=== PATIENT | female | born 1940 | race Caucasian/White ===

== ENCOUNTER 2018-09-02 14:28 | Inpatient (IN) ==
[2018-09-02] MEDS ORDERED: Ziprasidone 10 MG in Water for inj. (sterile) 0.5 ML IM ONE (14:31)
[2018-09-02] MEDS ORDERED: Ziprasidone 20 MG/VIAL VIAL IM ONE (14:33)
[2018-09-02] MEDS ORDERED: Water for inj. (sterile) 10 ML ONE (14:33)
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
[2018-09-02 15:22] LABS: Basophils % 0.5 %; Eosinophils # 0.2 K/mcL (0.0-0.6); Eosinophils % 2.4 %; Hematocrit 38.9 % (35.3-44.9); Hemoglobin 12.1 g/dL (11.5-15.4); Immature Granulocytes % 0.4 % (0-4); Lymphocytes # 2.7 K/mcL (0.6-4.6); Lymphocytes % 35.8 %; Mean Corpuscular HGB Conc 31.1 g/dL (31.6-35.5); Mean Corpuscular Hemoglobin 29.1 pg (28.0-33.3); Mean Corpuscular Volume 93.5 fL (83.0-100.0); Mean Platelet Volume 11.6 fL (9.4-12.4); Monocytes # 0.8 K/mcL (0.0-1.3); Monocytes % 10.3 %; Neutrophils # 3.8 K/mcL (1.6-8.9); Platelet Count 176 K/mcL (140-400); Red Blood Count 4.16 M/mcL (3.82-4.97); Segmented Neutrophils % 50.6 %; White Blood Count 7.4 K/mcL (4.3-11.1)
[2018-09-02 15:26] LABS: Bilirubin,Urine Negative (Negative); Blood,Urine Negative (Negative); Clarity,Urine Cloudy (Clear); Color,Urine Yellow (Yellow); Glucose,Urine (UA) Normal (Normal); Ketones,Urine Negative (Negative); Leukocyte Esterase,Urine Large (Negative); Nitrite,Urine Positive (Negative); Protein,Urine 30 mg/dL (Neg-Trace); Specific Gravity,Urine 1.018 (1.010-1.025); Urobilinogen,Urine Normal (Normal)
[2018-09-02 15:28] LABS: Bacteria,Urine Many per hpf (None-Few); Hyaline Casts,Urine None Seen per lpf (None-Few); RBC,Urine 0-3 per hpf (0-3); Squamous Epithelial Cell,Urine Moderate per lpf (None-Few); WBC,Urine TNTC per hpf (0-3)
[2018-09-02 15:40] LABS: Amphetamine Screen,Urine Negative ng/mL (Cutoff=1000); Barbiturate Screen,Urine Negative ng/mL (Cutoff=200); Benzodiazepines Screen,Urine Negative ng/mL (Cutoff=200); Cannabinoid Screen,Urine Negative ng/mL (Cutoff = 50); Cocaine Screen,Urine Negative ng/mL (Cutoff= 300); Opiate Screen,Urine Negative ng/mL (Cutoff=300); Phencyclidine Screen,Urine Negative ng/mL (Cutoff=25)
--- NOTE | 2018-09-02 15:40 | Event Note ---
Date of Encounter: 09/02/18
[2018-09-02 15:41] LABS: Acetaminophen < 10 mcg/mL (10-20); BUN/Creatinine Ratio 17 (6-26); Blood Urea Nitrogen 18 mg/dL (8-23); Carbon Dioxide 28 mEq/L (23-29); Chloride 106 mEq/L (98-107); Ethanol < 10 mg/dL (Less than 10); Glucose 97 mg/dL (70-105); Osmolality,Calculated 294 (280-300); Potassium 4.9 mEq/L (3.5-5.1); Salicylate < 2.5 mg/dL (15.0-30.0); Sodium 141 mEq/L (136-145); eGFR For African Americans 59 (> 60); eGFR For Non-African Americans 49 (> 60)
[2018-09-02] MEDS ORDERED: CefTRIAXone 1,000 MG VIAL IM ONE (15:46)
[2018-09-02] MEDS ORDERED: cefTRIAXone 1,000 MG in Water for inj. (sterile) 10 ML IVP STA (15:52)
[2018-09-02] MEDS ORDERED: 0.9 % Sodium Chloride 1,000 ML IVC ONE (15:55)
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
--- NOTE | 2018-09-02 16:41 | Internal Med History&Physical ---
Date of Encounter: 09/02/18 Time of Encounter: 16:45 Internal Medicine - H&P: HPI Chief complaint: worsened agitation from baseline, combativeness Admitted From: Long-term Nursing Facility Plans for Post Hospital Care: Transfer Shelter Facility History of present illness: Ms. Kaplan is a 78 year old female with pmhx ed stage dementia AAOx) at baseline with behavioral disturbance, sundowning, agitation and combativeness at baseline, incontinence of bowel and bladder at baseline and poor oral intake, following with psychiatry for medication changes routinely, lives at SNF, hx of MDD w psychotic features, anxiety, recurrent UTIs. She presented from SNF where she was more combative than baseline, biting staff. She is awake, smiling and coopaerative but oriented to zero at baseline. Her daughter Yoselin is present and is her POA. Her granddaughter whom works as ARCHITECTURAL MANAGER here and the pt elederly are also present. All history obtained from family as pt cannot converse in a meaningful way at baseline and cannot accurately report any symptoms or history. Family has noted worsened agitation, which has occurred with utis inpast. She has been holding her lower abd as if in pain. She is incontinent of urine at baseline. They deny any verbalization from her of dysuria, no known hematuria or change in freq. They deny other s/s of infection including recent cough, wheezing, congestion, diarrhea, rashes or wounds. They worry that she may be in pain with her ADLs as she grimaces when being assited with them. She has hx of bl knee replacements. No known swelling redness or joint. Family has d/w Dr Tristan chong who is agreeable to seeing if Ortho can assist in easing any pain to help with behaviors. Her daughter whom is POA is able to provide confirmation of code status- DNR CC. We discussed use of antipsychotics and black box warning which she is well versed in. She agrees with any treatment necessary to help keep her mother and staff safe. She cautioned nights are particularly bad for her. OK to straight cath for urine FAmily hx reviewed and non contributory Med list provided by facility. RN in ED has confirmed all scheduled meds, prn meds remain pending confirmation. Last dose changes by psych were about one week ago per family. Agreeable to treating possible uti and ortho eval, then psych consult if no improvement this admit She has recently (June) been hospitalized by [facility] for med adjustments. ED course included geodon 10 mg IM with good effect, rocephin + 1L NS, blood cx sent Past Med Surg Social Fam HX - Past Medical History Medical history: dementia, osteoporosis, other (recurrent UTIs) Additional medical history: end stage Alzheimer's Psychiatric history: anxiety, depression (Major Depressive D/O w psychotic features) - Past Surgical History Surgical History: knee replacement, orthopedic, other, LUDIVINA/BSO Additional surgical history: Disk repair in lower back, neck fusion, bi-lateral knee surgery, left shoulder surgery - Social History Smoking Status: Former smoker Smokeless Tobacco Status: No Alcohol use: none Drug use: none Current living situation: ECF - Family History Mother Living Status: - Additional Family History Additional family history: reviewed and non contributory Internal Medicine - H&P: Meds Acetaminophen [Extra Strength Non-Aspirin] 500 mg PO DAILY 09/02/18 [History] Buspirone HCl 10 mg PO BID 09/02/18 [History] Divalproex (12 HR) [Depakote (12 HR)] 250 mg PO DAILY 09/02/18 [History] Divalproex Sodium [Depakote Sprinkle] 125 mg PO HS 09/02/18 [History] Donepezil HCl [Donepezil HCl Odt] 10 mg PO HS 09/02/18 [History] Mirtazapine [Remeron] 15 mg PO DAILY 09/02/18 [History] Prochlorperazine Maleate [Compazine] 10 mg PO Q8HR PRN 09/02/18 [History] Quetiapine Fumarate [Seroquel] 25 mg PO DAILY 09/02/18 [History] Sertraline [Zoloft] 150 mg PO DAILY 09/02/18 [History] Tobramycin Opth OINT [Tobrex] 3.5 gm BOTH EYES BID 09/02/18 [History] Allergy/AdvReac Type Severity Reaction Status Date / Time bee venom protein (honey bee) Allergy See Verified 09/02/18 15:21 Comments morphine Allergy Hives Verified 09/02/18 15:21 mushroom Allergy See Verified 09/02/18 15:21 Comments Penicillins [PCN] Allergy See Verified 09/02/18 15:21 Comments sulfasalazine Allergy See Verified 09/02/18 15:21 Comments phenazopyridine AdvReac Nausea Verified 09/02/18 15:21 [From Pyridium] All Systems PM: unable to obtain further ROS other than noted in HPI due to end stage dementia, no meaningful conversations at baseline and inability to report symptoms - Constitutional Vitals: Temp Pulse Resp BP Pulse Ox 97.9 F 85 18 00 95 09/02/18 14:43 09/02/18 14:43 09/02/18 14:43 09/02/18 14:43 09/02/18 14:43 Exam: General: awake, alert, appears stated age, nad, calm HEENT:EOM intact, pupils equal, round, moist mucus membranes Neck: supple, trachea midline Cardiovascular:regular rate and rhythm, normal S1 & S2, no rubs, murmurs or gallops. No JVD. no pitting lower extremity edema Lungs:Normal breath sounds, no wheezes, or crackles. Normal respiratory effort on room air Abdomen:Soft, non-tender, non-distended, no rigidity, + bowel sounds Extremities: BL knees No deformity, no edema or tenderness, no joint swelling Neurological: AAOx0, CN grossly intact,moves all ext spontaneously without deficit noted, speech clear Skin:Normal color, no rash, no pallor, no jaundice Psych: affect is calm and cheerful, smiling, currently cooperative Internal Med - H&P Results - Labs CBC & Chem 7: 09/02/18 15:04 09/02/18 15:04 Labs: Short CBC 09/02/18 Range/Units 15:04 WBC 7.4 (4.3-11.1) K/mcL Hgb 12.1 (11.5-15.4) g/dL Hct 38.9 (35.3-44.9) % Plt Count 176 (140-400) K/mcL Neutrophils # 3.8 (1.6-8.9) K/mcL BMP 09/02/18 15:04 Sodium 141 Potassium 4.9 Chloride 106 Carbon Dioxide 28 BUN 18 Creatinine 1.08 Glucose 97 Calcium 9.0 Urine 09/02/18 Range/Units 15:07 Urine Color Yellow (Yellow) Urine Clarity Cloudy A (Clear) Urine pH 8.0 (5.0-8.0) pH Units Ur Specific [place] 1.018 (1.010-1.025) Urine Protein 30 H (Neg-Trace) mg/dL Urine Glucose (UA) Normal (Normal) mg/dL - Impressions ITS Impressions Head CT 09/02/18 14:31 IMPRESSION: 1. No acute intracranial abnormality. 2. Diffuse cerebral atrophy with chronic small vessel ischemic disease. D/ / Krish Ramos MD / Krish Ramos MD Interpreting Provider: Krish Ramos MD - Assessment and Plan (1) Encephalopathy due to infection Current Visit: Yes Status: Acute (2) Combative behavior Current Visit: Yes Status: Chronic (3) UTI (urinary tract infection) Current Visit: Yes Status: Suspected Qualifiers: Urinary tract infection type: site unspecified Hematuria presence: without hematuria Qualified Code(s): N39.0 - Urinary tract infection, site not specified (4) Alzheimer's dementia with behavioral disturbance Current Visit: No Status: Chronic Qualifiers: Alzheimer's disease onset: late-onset Qualified Code(s): G30.1 - Alzheimer's disease with late onset (5) Knee pain, bilateral Current Visit: Yes Status: Suspected Qualifiers: Chronicity: acute Qualified Code(s): M25.561 - Pain in right knee; M25.562 - Pain in left knee - Summary of Assessment and Plan Summary of Assessment and Plan: Admitted for acute encephalopathy with worsened combative behavior on top of end stage dementia due to suspected UTI and possible knee pain Encephalopathy, with increased combativeness from baseline suspected 2/2 Infection (UTI) Possibly worsened by bilateral knee pain In setting of End stage Dementia -doing well after geodon in ED -sitter, prn geodon, cont home meds -will treat UTI and have knees evaluated by her established ortho -can anticipate -check am ekg to confirm qt interval -DNR CC, limit uncomfortable interventions or those intervention that may further agitate pt End Stage Alzheimer Dementia w Behavioral disturbance Daughter Yoselin is her POA AAx0 at baseline -cont home remeron, depakote, donepizil, zoloft, seroquel -check VPA level -if no improvement with interventions above will consult psych -sitter, fall precautions Suspected UTI -old micro reviewed, hx resistance to pcn and cipro/levo in past -cont rocephin, bl cx and ucx pending Possible BL Knee pain Hx BL knee replacement -Dr Inman consulted to evfarhat, possible knee injections for pain -fall precautions vte ppx - scds - Time Spent With Patient Total time spent is greater than 50% in coordination of care (as documented) at patient's floor/unit and/or counseling patient: Greater than 35 minutes
[2018-09-02] MEDS ORDERED: Ondansetron 4 MG/2 ML VIAL IVP PRN (17:09)
[2018-09-02] MEDS ORDERED: Naloxone 0.4 MG/ML INJ IVP PRN (17:09)
[2018-09-02] MEDS ORDERED: Acetaminophen 325 MG TABLET PO PRN (17:09)
[2018-09-02 18:07] LABS: Valproate 34 mcg/mL (50-100)
[2018-09-02] MEDS: Ziprasidone 10 MG in Water for inj. (sterile) 0.5 ML IM PRN (18:59)
[2018-09-02] MEDS: TOBRAMYCIN OP SCH (21:54)
[2018-09-02] MEDS: Divalproex Sodium 125 MG CAPSULE PO SCH (21:54)
--- NOTE | 2018-09-03 08:03 | Internal Med Progress Note ---
Hospitalist Progress Note - Encounter Date of Encounter: 09/03/18 Time of Encounter: 09:30 - Subjective Interval History: awake, at bedside. she is eating breakfast. She does not appropriately answer questions, bt is calm. Sitter at bedside notes she slept most of morning. notes she is eating a fair amount of breakfast, appears comfortable and hasn't demonstrated signs of pain. - Exam Vitals: Temp Pulse Resp BP Pulse Ox 98.7 F 93 14 153/74 98 09/02/18 17:34 09/02/18 17:34 09/02/18 19:01 09/02/18 19:01 09/02/18 17:34 Exam: General: awake, alert, appears stated age, nad, calm Cardiovascular:regular rate and rhythm, normal S1 & S2, no pitting lower extremity edema Lungs:Normal breath sounds, no wheezes Normal respiratory effort on room air Abdomen:Soft, non-tender, non-distended, + bowel sounds Neurological: AAOx0, CN grossly intact,moves all ext spontaneously without deficit noted Psych: affect is calm currently cooperative - Assessment and Plan (1) Encephalopathy due to infection Current Visit: Yes Status: Acute (2) Combative behavior Current Visit: Yes Status: Chronic (3) UTI (urinary tract infection) Current Visit: Yes Status: Suspected (4) Alzheimer's dementia with behavioral disturbance Current Visit: No Status: Chronic (5) Knee pain, bilateral Current Visit: Yes Status: Suspected - Summary of Assessment and Plan Summary of Assessment and Plan: Admitted for acute encephalopathy with worsened combative behavior on top of end stage dementia due to suspected UTI and possible knee pain Encephalopathy, with increased combativeness from baseline- 2/ other cause: Infection (UTI), Possibly worsened by bilateral knee pain In setting of End stage Dementia with known behavioral disturbance -jim torres, cont home meds -will treat UTI and have knees evaluated by her established ortho -DNR CC, limit uncomfortable interventions or those intervention that may further agitate pt, unable to obtain ekg therefore order discontinued End Stage Alzheimer Dementia w Behavioral disturbance Daughter Yoselin is her POA AAx0 at baseline -cont home remeron, depakote, donepizil, zoloft, seroquel -VPA level 34, dose was just adjusted outpt by her psych one week ago -if fails to improve to baseline with treatment as above will get psych here on board for med adjustments -sitter, fall precautions Suspected UTI -old micro reviewed, hx resistance to pcn and cipro/levo in past -cont rocephin, bl cx and ucx pending Possible BL Knee pain Hx BL knee replacement -Dr Inman consulted to eval, possible knee injections for pain -fall precautions vte ppx - scds - Time Spent with Patient Total time spent is greater than 50% in coordination of care (as documented) at patient's floor/unit and/or counseling patient: Plan of Care Discussed with: family Internal Medicine: Result - Labs CBC & Chem 7: 09/02/18 15:04 09/03/18 07:46 Labs: Short CBC 09/02/18 Range/Units 15:04 WBC 7.4 (4.3-11.1) K/mcL Hgb 12.1 (11.5-15.4) g/dL Hct 38.9 (35.3-44.9) % Plt Count 176 (140-400) K/mcL Neutrophils # 3.8 (1.6-8.9) K/mcL BMP 09/02/18 15:04 Sodium 141 Potassium 4.9 Chloride 106 Carbon Dioxide 28 BUN 18 Creatinine 1.08 Glucose 97 Calcium 9.0 Urine 09/02/18 Range/Units 15:07 Urine Color Yellow (Yellow) Urine Clarity Cloudy A (Clear) Urine pH 8.0 (5.0-8.0) pH Units Ur Specific [place] 1.018 (1.010-1.025) Urine Protein 30 H (Neg-Trace) mg/dL Urine Glucose (UA) Normal (Normal) mg/dL - Impressions Impressions Head CT 09/02/18 14:31 IMPRESSION: 1. No acute intracranial abnormality. 2. Diffuse cerebral atrophy with chronic small vessel ischemic disease. D/ / Krish Ramos MD / Krish Ramos MD Interpreting Provider: Krish Ramos MD Consult Discharge Plan - Plan Referrals: NONE,PCP [Primary Care Provider] - (3) UTI (urinary tract infection) Qualifiers: Urinary tract infection type: site unspecified Hematuria presence: without hematuria Qualified Code(s): N39.0 - Urinary tract infection, site not specified (4) Alzheimer's dementia with behavioral disturbance Qualifiers: Alzheimer's disease onset: late-onset Qualified Code(s): G30.1 - Alzheimer's disease with late onset (5) Knee pain, bilateral Qualifiers: Chronicity: acute Qualified Code(s): M25.561 - Pain in right knee; M25.562 - Pain in left knee
[2018-09-03 09:19] LABS: Alanine Aminotransferase 8 Units/L (7-52); Albumin 3.8 g/dL (3.5-5.7); Albumin/Globulin Ratio 1.5 (1.1-2.2); Alkaline Phosphatase 70 Units/L (34-104); Aspartate Amino Transferase 13 Units/L (13-39); BUN/Creatinine Ratio 15 (6-26); Bilirubin,Total 0.3 mg/dL (0.3-1.0); Blood Urea Nitrogen 14 mg/dL (8-23); Calcium 8.9 mg/dL (8.6-10.3); Carbon Dioxide 26 mEq/L (23-29); Chloride 109 mEq/L (98-107); Globulin 2.5 g/dL (2.4-3.5); Glucose 89 mg/dL (70-105); Osmolality,Calculated 300 (280-300); Potassium 4.2 mEq/L (3.5-5.1); Sodium 145 mEq/L (136-145); Total Protein 6.3 g/dL (6.4-8.9); eGFR For African Americans > 60 (> 60); eGFR For Non-African Americans 56 (> 60)
[2018-09-03] MEDS: TOBRAMYCIN OP SCH ×2 (09:47→20:09)
[2018-09-03] MEDS: Mirtazapine 15 MG TABLET PO SCH (09:47)
[2018-09-03] MEDS: Divalproex (12 HR) 250 MG TABLET PO SCH (09:47)
[2018-09-03] MEDS: Ziprasidone 10 MG in Water for inj. (sterile) 0.5 ML IM PRN (11:18)
--- NOTE | 2018-09-03 12:13 | Orthopedic Consult Note ---
Date of Encounter: 09/03/18 Time of Encounter: 15:00 Assessment and Plan (1) History of bilateral knee replacement Current Visit: Yes Status: Chronic (2) Alzheimer's dementia with behavioral disturbance Current Visit: No Status: Chronic Qualifiers: Alzheimer's disease onset: late-onset Qualified Code(s): G30.1 - Alzheimer's disease with late onset History of Present Illness Chief complaint: h/o b/l knee pain HPI: Ms. Kaplan is a 78 year old female presents to [facility] with worsening behavioral disturbance. Family believed her knees to be contributing to her pain and worsened behavioral disturbance. She has been diagnosed with UTI at present time. She is status post bilateral knee replacements from Dr. Inman in remote past, per spouse over 15 years ago. Spouse at bedside. Sitter at bedside. Patient alert, but not oriented at all. On exam bilateral lower extremities with no gross deformity noted. There are excoriations noted to anterior knee and bilateral thighs. No disturbance or resistance noted with palpation of knees or passive rom. Patient unable to follow directed active rom. She does move her ankles independently with no perceived calf tenderness. No instability to knee motion. No effusion, scar disturbance, erythema, or gross deformity noted about either knee. At this time, patient does not appear to be in any distress related to her knees with no abnormality noted on exam, with the exception of the excoriations to bilateral thighs. Will forego any intervention including injections at this time Will reevaluate in the morning Past Med Surg Social Fam HX - Past Medical History Medical history: dementia, osteoporosis, other (recurrent UTIs) Additional medical history: end stage Alzheimer's Psychiatric history: anxiety, depression (Major Depressive D/O w psychotic features) - Past Surgical History Surgical History: knee replacement, orthopedic, other, LUDIVINA/BSO Additional surgical history: Disk repair in lower back, neck fusion, bi-lateral knee surgery, left shoulder surgery - Social History Smoking Status: Former smoker Smokeless Tobacco Status: No Alcohol use: none Drug use: none - Family History Mother Living Status: Medications and Allergies Acetaminophen [Extra Strength Non-Aspirin] 500 mg PO 0900,2100 09/02/18 [History] Buspirone HCl [Buspar] 10 mg PO 0900,1700 09/02/18 [History] Divalproex Sodium [Depakote Sprinkle] 250 mg PO 1200 09/02/18 [History] Mirtazapine [Remeron] 15 mg PO 209909/02/18 [History] Prochlorperazine Maleate [Compazine] 10 mg PO Q8HR PRN 09/02/18 [History] Quetiapine Fumarate [Seroquel] 25 mg PO 0900 09/02/18 [History] Sertraline [Zoloft] 150 mg PO 0909/02/18 [History] Divalproex Sodium [Depakote Sprinkle] 125 mg PO 209909/03/18 [History] Donepezil [Aricept] 10 mg PO 209909/03/18 [History] Hydrocortisone Valerate 1 appl TP TID PRN 09/03/18 [History] Ibuprofen [Ibu] 400 mg PO Q6H PRN 09/03/18 [History] Magnesium Hydroxide [Milk of Magnesia] 2,400 mg PO DAILY PRN 09/03/18 [History] Polyethylene Glycol 3350 [MiraLAX] 17 gm PO DAILY PRN 09/03/18 [History] Allergy/AdvReac Type Severity Reaction Status Date / Time bee venom protein (honey bee) Allergy See Verified 09/02/18 15:21 Comments morphine Allergy Hives Verified 09/02/18 15:21 mushroom Allergy See Verified 09/02/18 15:21 Comments Penicillins [PCN] Allergy See Verified 09/02/18 15:21 Comments sulfasalazine Allergy See Verified 09/02/18 15:21 Comments phenazopyridine AdvReac Nausea Verified 09/02/18 15:21 [From Pyridium] All Systems Reviewed: The remainder of the systems were reviewed and are negative Physical Exam - Constitutional Vitals: Temp Pulse Resp BP Pulse Ox 98.7 F 93 14 153/74 98 09/02/18 17:34 09/02/18 17:34 09/02/18 19:01 09/02/18 19:01 09/02/18 17:34 Results - Labs Result Diagrams: 09/02/18 15:04 09/03/18 07:46 Labs: Abnormal lab results MCHC 31.1 g/dL (31.6-35.5) L 09/02/18 15:04 Chloride 109 mEq/L (98-107) H 09/03/18 07:46 Est GFR ( Amer) 59 (> 60) L 09/02/18 15:04 Est GFR (Non-Af Amer) 56 (> 60) L 09/03/18 07:46 6.3 g/dL (6.4-8.9) L 09/03/18 07:46 Cloudy (Clear) A 09/02/18 15:07 30 mg/dL (Neg-Trace) H 09/02/18 15:07 Positive (Negative) A 09/02/18 15:07 Ur Leukocyte Esterase Large (Negative) H 09/02/18 15:07 TNTC per hpf (0-3) H 09/02/18 15:07 Ur Squamous Epith Cells Moderate per lpf (None-Few) H 09/02/18 15:07 Many per hpf (None-Few) H 09/02/18 15:07 Salicylates < 2.5 mg/dL (15.0-30.0) L 09/02/18 15:04 Acetaminophen < 10 mcg/mL (10-20) L 09/02/18 15:04 Valproic Acid 34 mcg/mL (50-100) L 09/02/18 15:04 H & H 09/02/18 Range/Units 15:04 Hgb 12.1 (11.5-15.4) g/dL Hct 38.9 (35.3-44.9) % All other labs normal. Consult Discharge Plan - Plan Referrals: NONE,PCP [Primary Care Provider] -
[2018-09-03] MEDS: cefTRIAXone 2,000 MG in 0.9 % Sodium Chloride Mini Bag 100 ML IVPB SCH (17:32)
[2018-09-03] MEDS: Divalproex Sodium 125 MG CAPSULE PO SCH (20:11)
[2018-09-04] MEDS: TOBRAMYCIN OP SCH (08:30)
[2018-09-04] MEDS: Divalproex (12 HR) 250 MG TABLET PO SCH ×2 (08:30→10:06)
[2018-09-04] MEDS: Mirtazapine 15 MG TABLET PO SCH ×2 (08:30→10:06)
--- NOTE | 2018-09-04 08:59 | Internal Med Progress Note ---
Hospitalist Progress Note - Encounter Date of Encounter: 09/04/18 Time of Encounter: 08:40 - Subjective Interval History: asleep, sitter and and RN at bedside. Was awake earlier this morning, taking intermittent naps, calm. not in distress or apparent pain per sitter. Staff preparing her breakfast for her. - Exam Vitals: Temp Pulse Resp BP Pulse Ox 98.5 F 17 16 162/79 96 09/04/18 06:16 09/04/18 06:16 09/04/18 06:16 09/04/18 06:16 09/04/18 06:16 Exam: General: appears stated age, nad, calm Cardiovascular:regular rate and rhythm, normal S1 & S2 Lungs:Normal breath sounds, no wheezes Normal respiratory effort on room air Abdomen:Soft, non-tender, non-distended Neurological: AAOx0 - Assessment and Plan (1) Encephalopathy due to infection Current Visit: Yes Status: Resolved (2) Combative behavior Current Visit: Yes Status: Chronic (3) UTI (urinary tract infection) Current Visit: Yes Status: Suspected (4) Alzheimer's dementia with behavioral disturbance Current Visit: No Status: Chronic (5) Knee pain, bilateral Current Visit: Yes Status: Suspected - Summary of Assessment and Plan Summary of Assessment and Plan: Admitted for acute encephalopathy with worsened combative behavior on top of end stage dementia due to suspected UTI and possible knee pain Encephalopathy, with increased combativeness from baseline- 2/2 other cause: Infection (UTI), Possibly worsened by bilateral knee pain In setting of End stage Dementia with known behavioral disturbance NOW BACK TO BASELINE -sitter, prn geodon, cont home meds -will treat UTI and have knees evaluated by her established ortho -DNR CC, limit uncomfortable interventions or those intervention that may further agitate pt End Stage Alzheimer Dementia w Behavioral disturbance Daughter Yoselin is her POA AAx0 at baseline -cont home remeron, depakote, donepizil, zoloft, seroquel -VPA level 34, dose was just adjusted outpt by her psych one week ago -will dispo to [facility] for further management -sitter, fall precautions Suspected UTI -old micro reviewed, hx resistance to pcn and cipro/levo in past -cont rocephin, bl cx ngtd -micro lab confirmed Ucx remains pending, had to be re run and will result likely wednesday 09/06 Possible BL Knee pain Hx BL knee replacement -Dr Inman consulted to eval, possible knee injections for pain -fall precautions vte ppx - scds dispo will be to [facility] unit once medically clear- which reuires Ucx to be resulted, not expected per lab until 09/06 Internal Medicine: Result - Labs CBC & Chem 7: 09/02/18 15:04 09/03/18 07:46 Labs: BMP 09/03/18 07:46 Sodium 145 Potassium 4.2 Chloride 109 H Carbon Dioxide 26 BUN 14 Creatinine 0.96 Glucose 89 Calcium 8.9 Liver Function 09/03/18 Range/Units 07:46 Total Bilirubin 0.3 (0.3-1.0) mg/dL AST 13 (13-39) Units/L ALT 8 (7-52) Units/L Alkaline Phosphatase 70 (34-104) Units/L Albumin 3.8 (3.5-5.7) g/dL Consult Discharge Plan - Plan Referrals: NONE,PCP [Primary Care Provider] - (3) UTI (urinary tract infection) Qualifiers: Urinary tract infection type: site unspecified Hematuria presence: without hematuria Qualified Code(s): N39.0 - Urinary tract infection, site not specified (4) Alzheimer's dementia with behavioral disturbance Qualifiers: Alzheimer's disease onset: late-onset Qualified Code(s): G30.1 - Alzheimer's disease with late onset (5) Knee pain, bilateral Qualifiers: Chronicity: acute Qualified Code(s): M25.561 - Pain in right knee; M25.562 - Pain in left knee
--- NOTE | 2018-09-04 13:24 | Electrocardiograph Report ---
[address] [address] Test Date: 2018-09-03 Pat Name: Cait Kaplan Department: 113 Room: 3B21 Gender: F Molder Setter: : 1940 Requested By: Kimberlyn Azul Order Number: [id number] Reading MD: Philip King Measurements Intervals [place] Rate: 100 P: 48 [place]: 212 QRS: -1 QRSD: 87 T: 52 QT: 344 QTc: 401 Interpretive Statements SINUS TACHYCARDIA WITH FIRST DEGREE AV BLOCK Electronically Signed On 09-04-2018 13:22:54 EDT by Philip King
[2018-09-04] MEDS: cefTRIAXone 2,000 MG in 0.9 % Sodium Chloride Mini Bag 100 ML IVPB SCH (15:46)
[2018-09-04] MEDS: Divalproex Sodium 125 MG CAPSULE PO SCH (21:56)
--- NOTE | 2018-09-05 07:19 | Orthopedics Progress Note ---
Date of Encounter: 09/04/18 Time of Encounter: 08:30 - Assessment and Plan (1) History of bilateral knee replacement Current Visit: Yes Status: Chronic (2) Alzheimer's dementia with behavioral disturbance Current Visit: No Status: Chronic Qualifiers: Alzheimer's disease onset: late-onset Qualified Code(s): G30.1 - Alzheimer's disease with late onset Subjective Principal diagnosis: h/o b/l knee replacement Interval history: Ms. Kaplan is a 78 year old female presents to [facility] with worsening behavioral disturbance. Family believed her knees to be contributing to her pain and worsened behavioral disturbance. She has been diagnosed with UTI. She is status post bilateral knee replacements from Dr. Inman in remote past, per spouse over 15 years ago. Spouse at bedside. Sitter at bedside. Patient sleeping peacefully. Patient does not arouse upon my entry. Spouse gives permission for examination. On exam bilateral lower extremities with no gross deformity noted. There are again excoriations noted to anterior knee and bilateral thighs - do not appear changed from yesterday's exam. No disturbance or resistance noted with palpation of knees or passive rom. Patient awakens during passive range of motion with no vocalization or fist making or move to stop this author from continuing examination. This notes that her sensation is likely intact to bilateral lower extremities. Patient unable to follow directed active rom. No instability to knee motion. No effusion, scar disturbance, erythema, or gross deformity noted about either knee. Again, at this time, patient does not appear to be in any distress related to her knees with no abnormality noted on exam, with the exception of the excoriations to bilateral thighs. Patient's spouse states today that patient has been walking unaided with no problem even recently however was grabbing at her k ne when staff at her previous residence were showering her. Also he notes she was able to bend her knees fully for straight catheterization on day of presentation without complaint or resistance. Will forego any intervention including injections at this time Encourage topical NSAID such as Voltaren (Diclofenac) gel versus pain relief creams such as Biofreeze or Aspercreme with lidocaine should patient begin to demonstrate concern regarding knees including actions such as clutching knees with motion, refusing to ambulate, falling or buckling of knees. Should this begin to occur, at that time steroid injections for pain/swelling relief would be indicated if conservative measures as noted above were not providing relief. S/w Dr. Monteiro Thank you for this consultation. Please reach out should any further concern regarding patient's orthopedic health arise. Objective Vital signs: Vital Signs Temp Pulse Resp BP Pulse Ox 09/04/18 17:32 98.6 F 82 18 153/79 93 09/04/18 11:39 98.5 F 87 14 143/81 92 Intake and Output 09/04/18 09/04/18 09/05/18 15:59 23:59 07:59 Intake Total 0 / 160 160 / 160 Output Total 0 / 0 Balance 0 / 160 160 / 160 0 / 0 Intake: IV Fluids 100 / 100 Rocephin 2,000 MG In 0.9 % 100 / 100 Sodium Chloride (Mini-Bag +) 100 ML @ 200 mls/hr IVPB Q24H [facility] Rx#:[id number] Oral 0 / 60 60 / 60 Output: Urine 0 / 0 Other: Meal Breakfast Dinner Percent of Meal Consumed 0% 25% - Labs CBC & BMP: 09/02/18 15:04 09/03/18 07:46 Labs: Abnormal lab results MCHC 31.1 g/dL (31.6-35.5) L 09/02/18 15:04 Chloride 109 mEq/L (98-107) H 09/03/18 07:46 Est GFR ( Amer) 59 (> 60) L 09/02/18 15:04 Est GFR (Non-Af Amer) 56 (> 60) L 09/03/18 07:46 6.3 g/dL (6.4-8.9) L 09/03/18 07:46 Cloudy (Clear) A 09/02/18 15:07 30 mg/dL (Neg-Trace) H 09/02/18 15:07 Positive (Negative) A 09/02/18 15:07 Ur Leukocyte Esterase Large (Negative) H 09/02/18 15:07 TNTC per hpf (0-3) H 09/02/18 15:07 Ur Squamous Epith Cells Moderate per lpf (None-Few) H 09/02/18 15:07 Many per hpf (None-Few) H 09/02/18 15:07 Salicylates < 2.5 mg/dL (15.0-30.0) L 09/02/18 15:04 Acetaminophen < 10 mcg/mL (10-20) L 09/02/18 15:04 Valproic Acid 34 mcg/mL (50-100) L 09/02/18 15:04 Consult Discharge Plan - Plan Referrals: NONE,PCP [Primary Care Provider] -
--- NOTE | 2018-09-05 08:40 | Internal Med Progress Note ---
Hospitalist Progress Note - Encounter Date of Encounter: 09/05/18 Time of Encounter: 10:10 - Subjective Interval History: awake in bed, no family at bedside. She is alert but doesn't answer any questions today. Turns head away and closes eyes. no further hpi or ros can be obtained due to end stage dementia. calm and comfortable appearing - Exam Vitals: Temp Pulse Resp BP Pulse Ox 98.4 F 84 16 174/77 94 09/05/18 07:57 09/05/18 07:57 09/05/18 07:57 09/05/18 07:57 09/05/18 07:57 Exam: General: appears stated age, nad Cardiovascular:regular rate and rhythm, no le edema Lungs:Normal breath sounds, no wheezes Normal respiratory effort on room air Neurological: AAOx0, CN grossly intact - Assessment and Plan (1) Encephalopathy due to infection Current Visit: Yes Status: Resolved (2) Combative behavior Current Visit: Yes Status: Chronic (3) UTI (urinary tract infection) Current Visit: Yes Status: Suspected (4) Alzheimer's dementia with behavioral disturbance Current Visit: No Status: Chronic (5) Knee pain, bilateral Current Visit: Yes Status: Ruled-out (6) HTN (hypertension) Current Visit: Yes Status: Acute - Summary of Assessment and Plan Summary of Assessment and Plan: Admitted for acute encephalopathy with worsened combative behavior on top of end stage dementia due to suspected UTI and possible knee pain She appears to be at baseline and has not demonstrated combative behavior in recent days her and is awaiting Ucx results for transfer to [facility]. Encephalopathy, with increased combativeness from baseline- 2/2 other cause: Infection (UTI) In setting of End stage Dementia with known behavioral disturbance NOW BACK TO BASELINE -sitter, prn geodon has not been required, cont home meds -will treat UTI -knees evaluated by her established ortho and cannot appreciate any abnormalities or demonstration of pain--no intervention required -DNR CC, limit uncomfortable interventions or those intervention that may further agitate pt End Stage Alzheimer Dementia w Behavioral disturbance Daughter Yoselin is her POA AAx0 at baseline -cont home remeron, depakote, donepizil, zoloft, seroquel -VPA level 34, dose was just adjusted outpt by her psych one week ago -will dispo to [facility] for further management -sitter, fall precautions Suspected UTI -old micro reviewed, hx resistance to pcn and cipro/levo in past -cont rocephin, bl cx ngtd -micro lab confirmed Ucx remains pending, had to be re run and will result likely wednesday 09/06 Possible BL Knee pain, ruled out Hx BL knee replacement -Dr Inman consulted to eval,no intervention required Consistently elevated BPs HTN -begin norvasc and monitor for effect, will require outpt follow up vte ppx - scds dispo will be to [facility] unit once medically clear- which requires Ucx to be resulted, not expected per lab until 09/06 Internal Medicine: Result - Labs CBC & Chem 7: 09/02/18 15:04 09/03/18 07:46 Consult Discharge Plan - Plan Referrals: NONE,PCP [Primary Care Provider] - (3) UTI (urinary tract infection) Qualifiers: Urinary tract infection type: site unspecified Hematuria presence: without hematuria Qualified Code(s): N39.0 - Urinary tract infection, site not specified (4) Alzheimer's dementia with behavioral disturbance Qualifiers: Alzheimer's disease onset: late-onset Qualified Code(s): G30.1 - Alzheimer's disease with late onset (5) Knee pain, bilateral Qualifiers: Chronicity: acute Qualified Code(s): M25.561 - Pain in right knee; M25.562 - Pain in left knee (6) HTN (hypertension) Qualifiers: Hypertension type: essential hypertension Qualified Code(s): I10 - Essential (primary) hypertension
[2018-09-05] MEDS: Divalproex (12 HR) 250 MG TABLET PO SCH (12:33)
[2018-09-05] MEDS: amLODIPine 5 MG TABLET PO SCH (12:33)
[2018-09-05] MEDS: Mirtazapine 15 MG TABLET PO SCH (12:34)
[2018-09-05] MEDS: cefTRIAXone 2,000 MG in 0.9 % Sodium Chloride Mini Bag 100 ML IVPB SCH (16:20)
[2018-09-05] MEDS: Divalproex Sodium 125 MG CAPSULE PO SCH (20:41)
--- NOTE | 2018-09-06 08:16 | Internal Med Progress Note ---
Hospitalist Progress Note - Encounter Date of Encounter: 09/06/18 Time of Encounter: 08:00 - Subjective Interval History: Pt asleep. and COOK [employer] at bedside. She is soundly sleeping as she was early yesterday morning. at bedside notes her to have been awake and ate meals with him both lunch and dinner last night. He denies agitation or combativeness and denies any indication she is in pain or uncomfortable. Discussed as well with RN given pt cannot provide hpi or ros with end stage dementia. RN also was with pt yesterday. notes she sleeps daily throughout morning and then is awake and interactive thorughout afternoon and evening. feels overall she is somewhat more tired than she is at home. VS have remained normal Labs obtained this morng are also unremarkable Ucx finalized results and proteus sensitive to rocephin for which she will complete course this afternoon. RN will hold her morning meds and we will see if this aides in morning somnolence today. Discussed with that her nighttime medication may be over sedating her, though it is unknown what her car dumper operator helper sleeping pattern at [facility] is. - Exam Vitals: Temp Pulse Resp BP Pulse Ox 98.0 F 66 16 144/70 96 09/06/18 07:12 09/06/18 07:12 09/06/18 07:12 09/06/18 07:12 09/06/18 07:12 Exam: General: appears stated age, nad Cardiovascular:regular rate and rhythm, no murmurs, no le edema, no jvd Lungs:Normal breath sounds, no wheezes, rhonchi or crackles Normal respiratory effort on room air abd: soft, no apparent tenderness as no guard or grimace to palpation, non distended, + bs Neurological: AAOx0, no facial droop, very somnolent - Assessment and Plan (1) Encephalopathy due to infection Current Visit: Yes Status: Resolved (2) Combative behavior Current Visit: Yes Status: Chronic (3) UTI (urinary tract infection) Current Visit: Yes Status: Suspected (4) Alzheimer's dementia with behavioral disturbance Current Visit: No Status: Chronic (5) Knee pain, bilateral Current Visit: Yes Status: Ruled-out (6) HTN (hypertension) Current Visit: Yes Status: Acute - Summary of Assessment and Plan Summary of Assessment and Plan: Admitted for acute encephalopathy with worsened combative behavior on top of end stage dementia due to suspected UTI and possible knee pain She appears to be at baseline and has not demonstrated combative behavior in recent days her and is awaiting Ucx results for transfer to [facility]. Encephalopathy, with increased combativeness from baseline- 2/2 other cause: Infection (UTI) In setting of End stage Dementia with known behavioral disturbance Resolved -sitter when not present, prn jersey has not been required since admission -cont home meds for behavioral disturbance -she is somnolent in mornings then interactive in afternoons/evenings -UTI treatment will be ocmplete tonight -knees evaluated by her established ortho and cannot appreciate any abnormalities or demonstration of pain--no intervention required -DNR CC, limit uncomfortable interventions or those intervention that may further agitate pt End Stage Alzheimer Dementia w Behavioral disturbance Daughter Yoselin is her POA AAx0 at baseline -cont home remeron, depakote, donepizil, zoloft, seroquel -VPA level 34, dose was just adjusted outpt by her psych one week ago -will d ispo to [facility] for further management -we will permit psychiatry to adjust meds as she is calm here, though admittedly appears sedated in ams with interactiveness in afternoon and evenings, but he sitate to make changes given complexity of her regimen and severity of her behavioral disturbance Proteus UTI sensistive to rocephin -will complete IV abx this evening - bl cx ngtd day 4 Possible BL Knee pain, ruled out Hx BL knee replacement -Dr Inman consulted to eval,no intervention required, fu outpt as required Consistently elevated BPs 150-160s sbp HTN -began norvasc w good effect (sbps 130-140) will require outpt follow up and further med adjustment vte ppx - scds dispo will be to [facility] psych unit tomorrow as medically stable, will complete abx course this evening - Time Spent with Patient Total time spent is greater than 50% in coordination of care (as documented) at patient's floor/unit and/or counseling patient: Internal Medicine: Result - Labs CBC & Chem 7: 09/06/18 08:47 09/06/18 08:47 Consult Discharge Plan - Plan Referrals: NONE,PCP [Primary Care Provider] - (3) UTI (urinary tract infection) Qualifiers: Urinary tract infection type: site unspecified Hematuria presence: without hematuria Qualified Code(s): N39.0 - Urinary tract infection, site not specified (4) Alzheimer's dementia with behavioral disturbance Qualifiers: Alzheimer's disease onset: late-onset Qualified Code(s): G30.1 - Alzheimer's disease with late onset (5) Knee pain, bilateral Qualifiers: Chronicity: acute Qualified Code(s): M25.561 - Pain in right knee; M25.562 - Pain in left knee (6) HTN (hypertension) Qualifiers: Hypertension type: essential hypertension Qualified Code(s): I10 - Essential (primary) hypertension
[2018-09-06] MEDS: Divalproex (12 HR) 250 MG TABLET PO SCH (08:29)
[2018-09-06] MEDS: Mirtazapine 15 MG TABLET PO SCH (08:29)
[2018-09-06] MEDS: amLODIPine 5 MG TABLET PO SCH (08:29)
[2018-09-06 09:11] LABS: Basophils # 0.1 K/mcL (0.0-0.2); Basophils % 0.6 %; Eosinophils # 0.3 K/mcL (0.0-0.6); Eosinophils % 3.4 %; Hematocrit 42.2 % (35.3-44.9); Hemoglobin 13.3 g/dL (11.5-15.4); Immature Granulocytes % 0.4 % (0-4); Lymphocytes # 2.7 K/mcL (0.6-4.6); Lymphocytes % 32.9 %; Mean Corpuscular HGB Conc 31.5 g/dL (31.6-35.5); Mean Corpuscular Hemoglobin 29.6 pg (28.0-33.3); Mean Platelet Volume 11.3 fL (9.4-12.4); Monocytes # 0.8 K/mcL (0.0-1.3); Monocytes % 9.2 %; Neutrophils # 4.4 K/mcL (1.6-8.9); Platelet Count 221 K/mcL (140-400); Red Blood Count 4.49 M/mcL (3.82-4.97); Segmented Neutrophils % 53.5 %; White Blood Count 8.2 K/mcL (4.3-11.1)
[2018-09-06 09:30] LABS: BUN/Creatinine Ratio 27 (6-26); Blood Urea Nitrogen 28 mg/dL (8-23); Calcium 9.2 mg/dL (8.6-10.3); Carbon Dioxide 26 mEq/L (23-29); Chloride 106 mEq/L (98-107); Glucose 106 mg/dL (70-105); Osmolality,Calculated 298 (280-300); Potassium 4.3 mEq/L (3.5-5.1); Sodium 141 mEq/L (136-145); eGFR For African Americans > 60 (> 60); eGFR For Non-African Americans 50 (> 60)
[2018-09-06] MEDS: cefTRIAXone 2,000 MG in 0.9 % Sodium Chloride Mini Bag 100 ML IVPB SCH (16:33)
[2018-09-06] MEDS: Divalproex Sodium 125 MG CAPSULE PO SCH (20:39)
--- NOTE | 2018-09-07 07:40 | Discharge Summary ---
- NOTES TO OUTPATIENT PROVIDER Notes to Outpatient Provider: No medication changes made. VPA level low 34 and defer to outpt psychiatry for med adjustments as no behavioral issues here. Completed abx course for UTI. Started on Norvasc 5 mg for consistently elevated BPs here. Follow up outpt for further adjsutments Orders not resulted at time of discharge: Pending orders 09/02/18 16:13 Culture,Blood [BC] Stat Date of Encounter: 09/07/18 Time of Encounter: 08:40 - Discharge Diagnosis (1) Encephalopathy due to infection Priority: Primary Status: Resolved Assessment and Plan: Encephalopathy, with increased combativeness from baseline- 04/11 other cause: Infection (UTI) In setting of End stage Dementia with known behavioral disturbance Resolved -prn jersey has not been required since admission -cont home meds for behavioral disturbance -she is somnolent in mornings then interactive in afternoons/evenings daily -UTI treatment completed prior to dc -knees evaluated by her established ortho and cannot appreciate any abnormalities or demonstration of pain--no intervention required (2) UTI (urinary tract infection) Priority: Secondary Status: Acute Assessment and Plan: Proteus UTI sensistive to rocephin -completed course 09/06 - bl cx ngtd x4d Qualifiers: Urinary tract infection type: site unspecified Hematuria presence: without hematuria Qualified Code(s): N39.0 - Urinary tract infection, site not specified (3) Alzheimer's dementia with behavioral disturbance Priority: Secondary Status: Chronic Assessment and Plan: End Stage Alzheimer Dementia w Behavioral disturbance Daughter Yoselin is her POA AAx0 at baseline -cont home remeron, depakote, donepizil, zoloft, seroquel -VPA level 34, dose was just adjusted outpt by her psych one week ago -defer to psych for further management as no behavioral issues here Qualifiers: Alzheimer's disease onset: late-onset Qualified Code(s): G30.1 - Alzheimer's disease with late onset (4) Knee pain, bilateral Priority: Secondary Status: Ruled-out Assessment and Plan: Possible BL Knee pain, ruled out Hx BL knee replacement -Dr Inman consulted to eval,no intervention required, fu outpt as required Qualifiers: Chronicity: acute Qualified Code(s): M25.561 - Pain in right knee; M25.562 - Pain in left knee (5) HTN (hypertension) Priority: Secondary Status: Acute Assessment and Plan: HTN -began norvasc w good effect (sbps 130-140) will require outpt follow up and further med adjustment Qualifiers: Hypertension type: unspecified Qualified Code(s): I10 - Essential (primary) hypertension Hospital course: Ms. Kaplan is a 78 year old female pmhx ed stage dementia AAOx) at baseline with behavioral disturbance, sundowning, agitation and combativeness at baseline, incontinence of bowel and bladder at baseline and poor oral intake, following with psychiatry for medication changes routinely, lives at SNF, hx of MDD w psychotic features, anxiety, recurrent UTIs. Admitted for increased behavioral disturbance and UTI. She was treated with rocephin and had an uncomplicated course. Her behavioral disturbances were stable on her home medications and no adjustments or psych consult were required. The full details of her course can be found in the diagnoses section of this document. She was dc back to SNF in stable condition. Discharge discussed with: patient, family, nurse, social work - Time Spent with Patient Time spent: Less than 30 minutes (25 min) - Discharge Medications Prescriptions: New amLODIPine [Norvasc] 5 mg PO DAILY tablet Continued Quetiapine Fumarate [Seroquel] 25 mg PO 0900 Prochlorperazine Maleate [Compazine] 10 mg PO Q8HR PRN PRN Reason: Nausea Mirtazapine [Remeron] 15 mg PO 2100 Divalproex Sodium [Depakote Sprinkle] 250 mg PO 1200 Sertraline [Zoloft] 150 mg PO 0900 Acetaminophen [Extra Strength Non-Aspirin] 500 mg PO 0900,2100 Buspirone HCl [Buspar] 10 mg PO 0900,1700 Divalproex Sodium [Depakote Sprinkle] 125 mg PO 2100 Donepezil [Aricept] 10 mg PO 2100 Hydrocortisone Valerate 1 appl TP TID PRN PRN Reason: Itching Ibuprofen [Ibu] 400 mg PO Q6H PRN PRN Reason: Pain Magnesium Hydroxide [Milk of Magnesia] 2,400 mg PO DAILY PRN PRN Reason: Constipation Polyethylene Glycol 3350 [MiraLAX] 17 gm PO DAILY PRN PRN Reason: Constipation Home Medications: Acetaminophen [Extra Strength Non-Aspirin] 500 mg PO 0900,2100 09/02/18 [History] Buspirone HCl [Buspar] 10 mg PO 0900,1700 09/02/18 [History] Divalproex Sodium [Depakote Sprinkle] 250 mg PO 1200 09/02/18 [History] Mirtazapine [Remeron] 15 mg PO 209909/02/18 [History] Prochlorperazine Maleate [Compazine] 10 mg PO Q8HR PRN 09/02/18 [History] Quetiapine Fumarate [Seroquel] 25 mg PO 89909/02/18 [History] Sertraline [Zoloft] 150 mg PO 89909/02/18 [History] Divalproex Sodium [Depakote Sprinkle] 125 mg PO 209909/03/18 [History] Donepezil [Aricept] 10 mg PO 209909/03/18 [History] Hydrocortisone Valerate 1 appl TP TID PRN 09/03/18 [History] Ibuprofen [Ibu] 400 mg PO Q6H PRN 09/03/18 [History] Magnesium Hydroxide [Milk of Magnesia] 2,400 mg PO DAILY PRN 09/03/18 [History] Polyethylene Glycol 3350 [MiraLAX] 17 gm PO DAILY PRN 09/03/18 [History] amLODIPine [Norvasc] 5 mg PO DAILY tablet 09/07/18 [Rx] Allergies/Adverse Reactions: Allergy/AdvReac Type Severity Reaction Status Date / Time bee venom protein (honey bee) Allergy See Verified 09/02/18 15:21 Comments morphine Allergy Hives Verified 09/02/18 15:21 mushroom Allergy See Verified 09/02/18 15:21 Comments Penicillins [PCN] Allergy See Verified 09/02/18 15:21 Comments sulfasalazine Allergy See Verified 09/02/18 15:21 Comments phenazopyridine AdvReac Nausea Verified 09/02/18 15:21 [From Pyridium] Date of admission: 09/02/18 18:11 Primary care physician: PCP NONE Consults: 09/02/18 17:11 Consult to Wall Covering Installer [CONS] Routine Reason for SW Consult: will likely place back to snf 09/02/18 17:12 Consult to Nutrition [CONS] Routine Comment: end stage dementia, poor oral intake Consulting Provider: NUTRITION Reason for Dietary Consult: PO Supplementation Consult to Orthopedic Surgery [CONS] Routine Consulting Provider: Lester Inman Reason for Consult: suspected possible knee pain as cause to behavioral worsening, eval for any possible intervention/tx recs, thank you Call Completed: Yes Discharging clinician: Kimberlyn Azul - Constitutional Vitals: Temp Pulse Resp BP Pulse Ox 98.7 F 95 16 164/88 96 09/07/18 07:22 09/07/18 07:22 09/07/18 07:22 09/07/18 07:22 09/07/18 07:22 Exam: asleep, awakes to conversation with her . Comfortable appearing, does not answer question. HPI and ROS from at bedside given her severe dementia. He denies she appears in pain, he has no concerns. Updated to completion of antibiotic treatment and normal labs and vitals. Discussed dc plan and answered all questions. Discussed with RN, no overnight issues, no prn geodon required. General: appears stated age, nad Cardiovascular:regular rate and rhythm, no murmurs, no le edema Lungs:Normal breath sounds, no wheezes, rhonchi or crackles Normal respiratory effort on room air abd: soft, no apparent tenderness as no guard or grimace to palpation, non distended, + bs Neurological: AAOx0, no facial droop, awake, spontaneous movement of all exts without deficit - Patient Status Disposition: Transfer SNF Condition: Good Overall status at discharge: patient is back to baseline - Discharge Instructions Follow Up With: NONE,PCP [Primary Care Provider] - Forms: ED Satisfaction Letter - Diet and Activity Activity: increase activity as tolerated Diet: advance to your usual diet
[2018-09-07 11:49] VITALS: BP 149/87
--- NOTE | 2018-09-07 11:52 | Physician Discharge Referral ---
ExtendedCare Referral Info Provider in Charge after Transfer: PCP - Diagnosis (1) Encephalopathy due to infection Priority: Primary Status: Resolved (2) Combative behavior Priority: Secondary Status: Chronic (3) UTI (urinary tract infection) Priority: Secondary Status: Acute (4) Alzheimer's dementia with behavioral disturbance Priority: Secondary Status: Chronic (5) Knee pain, bilateral Priority: Secondary Status: Ruled-out (6) HTN (hypertension) Priority: Secondary Status: Acute Prognosis: Fair - Transfer Medications Home Medications: Acetaminophen [Extra Strength Non-Aspirin] 500 mg PO 0900,209909/02/18 [History] Buspirone HCl [Buspar] 10 mg PO 0900,1700 09/02/18 [History] Divalproex Sodium [Depakote Sprinkle] 250 mg PO 1200 09/02/18 [History] Mirtazapine [Remeron] 15 mg PO 209909/02/18 [History] Prochlorperazine Maleate [Compazine] 10 mg PO Q8HR PRN 09/02/18 [History] Quetiapine Fumarate [Seroquel] 25 mg PO 0900 09/02/18 [History] Sertraline [Zoloft] 150 mg PO 0900 09/02/18 [History] Divalproex Sodium [Depakote Sprinkle] 125 mg PO 209909/03/18 [History] Donepezil [Aricept] 10 mg PO 209909/03/18 [History] Hydrocortisone Valerate 1 appl TP TID PRN 09/03/18 [History] Ibuprofen [Ibu] 400 mg PO Q6H PRN 09/03/18 [History] Magnesium Hydroxide [Milk of Magnesia] 2,400 mg PO DAILY PRN 09/03/18 [History] Polyethylene Glycol 3350 [MiraLAX] 17 gm PO DAILY PRN 09/03/18 [History] amLODIPine [Norvasc] 5 mg PO DAILY tablet 09/07/18 [Rx] Allergies/Adverse Reactions: Allergy/AdvReac Type Severity Reaction Status Date / Time bee venom protein (honey bee) Allergy See Verified 09/02/18 15:21 Comments morphine Allergy Hives Verified 09/02/18 15:21 mushroom Allergy See Verified 09/02/18 15:21 Comments Penicillins [PCN] Allergy See Verified 09/02/18 15:21 Comments sulfasalazine Allergy See Verified 09/02/18 15:21 Comments phenazopyridine AdvReac Nausea Verified 09/02/18 15:21 [From Pyridium] - Respiratory Orders None Smoking Cessation: Smoking cessation has been advised. For more information, call the [place] Tobacco Quit Line at 3-735-RIKS-NOW. - Ancillary Orders May use pressure relief devices daily prn - Advance Directives Code Status: DNR-Comfort Care - Rehabiliation Orders Rehab Potential: Fair Rehab Orders: ROM Exercises, Evaluation for Physical Therapy, Evaluation for Occupational Therapy - Diet Orders Regular CERTIFICATION: I certify that the transfer of the above named patient to an Extended Care Facility is necessary for the continuing treatment of the diagnosis listed. The above information is true and accurate reflection of patient's current condition. Confidential - Redisclosure prohibited without a patient's written consent.
[2018-09-07] MEDS: amLODIPine 5 MG TABLET PO SCH (13:23)
[2018-09-07] MEDS: Mirtazapine 15 MG TABLET PO SCH (13:24)
[2018-09-07] MEDS: Divalproex (12 HR) 250 MG TABLET PO SCH (13:49)
== END 2018-09-07 14:00 | DRG 71 ==
LOC: 3BNU 14:28 → EMEROOARM 14:28 → SUATTDRO 16:39 → 3BNU 17:12
PROVIDERS: ADMIT Internal Medicine; ATTEND Internal Medicine

== ENCOUNTER 2018-11-10 16:00 | Inpatient (IN) ==
[2018-11-10] MEDS ORDERED: Haloperidol Lactate 5 MG/ML VIAL IM ONE (16:17)
[2018-11-10] MEDS ORDERED: Ibuprofen 400 MG TABLET PO PRN (16:42)
[2018-11-10] MEDS ORDERED: Haloperidol Oral Conc 10 MG/5 ML UDC PO SCH (16:45)
[2018-11-10] MEDS ORDERED: Haloperidol Lactate 5 MG/ML VIAL IM PRN (16:51)
[2018-11-10] MEDS ORDERED: Haloperidol Oral Conc 10 MG/5 ML UDC PO PRN (16:52)
--- NOTE | 2018-11-10 17:11 | Pallative History & Physical ---
Date of Encounter: 11/10/18 Time of Encounter: 17:10 Assessment and Plan (1) Agitation Current visit: Yes Status: Acute Haldol 5 mg po/IM every 4 hours if needed. Hopefully, agitation will improve if this is related to UTI. (2) UTI (urinary tract infection) Current visit: No Status: Acute UA/culture. Will start IM Ceftriaxone as she is too combative for IV stick at present. Last admission in August - urine + for Proteus and sensitive to Ceftriaxone. Also obtaining CBC/C13 Qualifiers: Urinary tract infection type: site unspecified Hematuria presence: without hematuria Qualified Code(s): N39.0 - Urinary tract infection, site not specified (3) Hospice care Current visit: Yes Status: Acute (4) Altered mental status Current visit: No Status: Acute Qualifiers: Altered mental status type: delirium Qualified Code(s): R41.0 - Disorientation, unspecified (5) Alzheimer's dementia with behavioral disturbance Current visit: No Status: Chronic Check LFT's/Depakote level. Adjust meds as needed. Qualifiers: Alzheimer's disease onset: late-onset Qualified Code(s): G30.1 - Alzheimer's disease with late onset (6) Palliative care encounter Current visit: Yes Status: Acute Internal Medicine - H&P: HPI Admitted From: Long-term Nursing Facility Plans for Post Hospital Care: Hospice - Medical Facility History of present illness: Ms. Kaplan is a 78 year old female who resides at [facility] and a patient of [facility] who is admitted for general inpatient hospice stay for increased agitation and combativeness. No family is present with patient and she is agitated, so information taken from chart review. She has history of Alzheimers dementia, depression, anxiety, incontinence. She has became aggressive with staff at [facility], and is refusing bathing and some oral medications. She also had recent fall. SHe was admitted for symptom management of her agitation and r/o UTI. Last admission, she did have agitation and was positive for Proteus Mirabilis, treated with Ceftriaxone. Behaviors improved after treatment. Past Med Surg Social Fam HX - Past Medical History Medical history: dementia, hypertension, osteoporosis, other Additional medical history: end stage Alzheimer's Psychiatric history: anxiety, depression - Past Surgical History Surgical History: knee replacement, orthopedic, other, LUDIVINA/BSO Additional surgical history: Disk repair in lower back, neck fusion, bi-lateral knee surgery, left shoulder surgery - Social History Smoking Status: Former smoker Smokeless Tobacco Status: No Alcohol use: none Drug use: none - Family History Mother Living Status: Internal Medicine - H&P: Meds Acetaminophen [Extra Strength Non-Aspirin] 500 mg PO 0900,2100 09/02/18 [History] Buspirone HCl [Buspar] 10 mg PO 0900,1700 09/02/18 [History] Divalproex Sodium [Depakote Sprinkle] 250 mg PO 1200 09/02/18 [History] Mirtazapine [Remeron] 15 mg PO 209909/02/18 [History] Prochlorperazine Maleate [Compazine] 10 mg PO Q8HR PRN 09/02/18 [History] Quetiapine Fumarate [Seroquel] 25 mg PO 0900 09/02/18 [History] Sertraline [Zoloft] 150 mg PO 0900 09/02/18 [History] Divalproex Sodium [Depakote Sprinkle] 125 mg PO 209909/03/18 [History] Donepezil [Aricept] 10 mg PO 209909/03/18 [History] Hydrocortisone Valerate 1 appl TP TID PRN 09/03/18 [History] Ibuprofen [Ibu] 400 mg PO Q6H PRN 09/03/18 [History] Magnesium Hydroxide [Milk of Magnesia] 2,400 mg PO DAILY PRN 09/03/18 [History] Polyethylene Glycol 3350 [MiraLAX] 17 gm PO DAILY PRN 09/03/18 [History] amLODIPine [Norvasc] 5 mg PO DAILY tablet 09/07/18 [Rx] Allergy/AdvReac Type Severity Reaction Status Date / Time bee venom protein (honey bee) Allergy See Verified 09/02/18 15:21 Comments morphine Allergy Hives Verified 09/02/18 15:21 mushroom Allergy See Verified 09/02/18 15:21 Comments Penicillins [PCN] Allergy See Verified 09/02/18 15:21 Comments sulfasalazine Allergy See Verified 09/02/18 15:21 Comments phenazopyridine AdvReac Nausea Verified 09/02/18 15:21 [From Pyridium] ROS unobtainable: due to mental status Palliative Care-Exam - Constitutional General appearance: Present: no acute distress - Head Head Exam: Present: normal inspection, normocephalic - Eye Eye exam: Present: normal appearance - Respiratory Respiratory exam: Present: decreased breath sounds, CTAB - Cardiovascular Cardiovascular exam: Present: +S1, +S2 - GI/Abdominal Exam GI/Abdominal exam: Present: normal bowel sounds, soft - Extremities Exam Extremities exam: Present: normal capillary refill, normal inspection - Neurological Exam Neurological exam: Present: altered Additional comments: Agitated with assessment. Will not follow commands. - Skin Skin exam: Present: dry, pallor, warm Palliative Quality Palliative Quality: Screen for Code Status: Yes, Screen for Goals of Care: Yes, Screen for Pain: NA (uncooperative), If Pain Regimen Started, Initiate Bowel Regimen: NA, Screen for Nausea/Vomitting: NA Code Status: 11/10/18 16:47 Resuscitation Status: Active [RES] Routine Comment: Resuscitation Status: DNR-Comfort Care
[2018-11-10] MEDS ORDERED: CefTRIAXone 1,000 MG VIAL IM ONE ×2 (17:36→20:00)
[2018-11-10 18:17] LABS: Bilirubin,Urine Small (Negative); Blood,Urine Moderate (Negative); Clarity,Urine Cloudy (Clear); Color,Urine Yellow (Yellow); Glucose,Urine (UA) Normal (Normal); Ketones,Urine Trace mg/dL (Negative); Leukocyte Esterase,Urine Large (Negative); Nitrite,Urine Negative (Negative); PH,Urine 5.5 pH Units (5.0-8.0); Protein,Urine Trace mg/dL (Neg-Trace); Specific Gravity,Urine 1.028 (1.010-1.025); Urobilinogen,Urine Normal (Normal)
[2018-11-10 18:18] LABS: Basophils # 0.1 K/mcL (0.0-0.2); Basophils % 0.8 %; Eosinophils # 0.2 K/mcL (0.0-0.6); Eosinophils % 1.9 %; Hematocrit 42.1 % (35.3-44.9); Immature Granulocytes % 0.4 % (0-4); Lymphocytes # 2.6 K/mcL (0.6-4.6); Mean Corpuscular HGB Conc 30.9 g/dL (31.6-35.5); Mean Corpuscular Hemoglobin 29.7 pg (28.0-33.3); Mean Corpuscular Volume 96.3 fL (83.0-100.0); Mean Platelet Volume 11.8 fL (9.4-12.4); Monocytes # 0.7 K/mcL (0.0-1.3); Monocytes % 9.5 %; Neutrophils # 4.2 K/mcL (1.6-8.9); Platelet Count 112 K/mcL (140-400); Red Blood Count 4.37 M/mcL (3.82-4.97); Red Cell Distribution Width 13.2 % (11.5-14.5); Segmented Neutrophils % 54.4 %; White Blood Count 7.8 K/mcL (4.3-11.1)
[2018-11-10 18:19] LABS: Bacteria,Urine Few per hpf (None-Few); RBC,Urine 0-3 per hpf (0-3); Squamous Epithelial Cell,Urine Moderate per lpf (None-Few); WBC,Urine TNTC per hpf (0-3)
[2018-11-10 18:34] LABS: Albumin 4.2 g/dL (3.5-5.7); Albumin/Globulin Ratio 1.5 (1.1-2.2); Bilirubin,Indirect 0.3 mg/dL (0.0-1.2); Bilirubin,Total 0.3 mg/dL (0.3-1.0); Calcium 9.5 mg/dL (8.6-10.3); Globulin 2.8 g/dL (2.4-3.5); Potassium 3.9 mEq/L (3.5-5.1)
[2018-11-10 18:40] LABS: Hyaline Casts,Urine Few per lpf (None-Few)
[2018-11-10 18:41] LABS: Mucus,Urine Few (Few); Yeast,Urine Few per hpf (None Seen)
[2018-11-10] MEDS: Divalproex Sodium 125 MG CAPSULE PO SCH (20:17)
[2018-11-10] MEDS: Gabapentin 100 MG CAPSULE PO SCH (20:17)
[2018-11-10] MEDS: risperiDONE 1 MG TABLET PO SCH (20:17)
[2018-11-10] MEDS: Mirtazapine 15 MG TABLET PO SCH (20:17)
--- NOTE | 2018-11-11 09:46 | Palliative Progress Note ---
Date of Encounter: 11/11/18 Time of Encounter: 09:45 - Assessment and plan (1) Agitation Current Visit: Yes Status: Acute Assessment and plan: Continue Haloperidol PRN. Has not required since she had initial dose upon admission yesterday. MOnitor (2) UTI (urinary tract infection) Current Visit: No Status: Acute Assessment and plan: Continue IM Ceftriaxone. Hopefully when culture returns, can transition to po Atb Qualifiers: Urinary tract infection type: site unspecified Hematuria presence: without hematuria Qualified Code(s): N39.0 - Urinary tract infection, site not specified (3) Hospice care Current Visit: Yes Status: Acute Assessment and plan: Continue GIP care for likely UTI/agitation. She is improved today. Once urine culture back and atb therapy reviewed, she could transition back to [facility]. Bishnu at bedside. Discussed plan of care. (4) Altered mental status Current Visit: No Status: Acute Qualifiers: Altered mental status type: delirium Qualified Code(s): R41.0 - Disorientation, unspecified (5) Alzheimer's dementia with behavioral disturbance Current Visit: No Status: Chronic Qualifiers: Alzheimer's disease onset: late-onset Qualified Code(s): G30.1 - A lzheimer's disease with late onset (6) Palliative care encounter Current Visit: Yes Status: Acute - Time Spent With Patient Total time spent is greater than 50% in coordination of care (as documented) at patient's floor/unit and/or counseling patient: - Subjective Interval history: Patient sleeping on arrival - Bishnu at bedside. She awakens easily - smiled when she saw her , but would not answer questions for me. Staff reported she slept all night, but was still very agitated with getting a bath. Vitals stable. Labs from yesterday reviewed. UA + WBC, Leukocyte esterase, culture remains pending. - Constitutional Vitals: Abnormal lab results MCHC 30.9 g/dL (31.6-35.5) L 11/10/18 17:18 Plt Count 112 K/mcL (140-400) L 11/10/18 17:18 Chloride 108 mEq/L (98-107) H 11/10/18 17:18 Est GFR ( Amer) 55 (> 60) L 11/10/18 17:18 Est GFR (Non-Af Amer) 45 (> 60) L 11/10/18 17:18 Urine Clarity Cloudy (Clear) A 11/10/18 17:35 Ur Specific [place] 1.028 (1.010-1.025) H 11/10/18 17:35 Urine Ketones Trace mg/dL (Negative) H 11/10/18 17:35 Urine Blood Moderate (Negative) H 11/10/18 17:35 Urine Bilirubin Small (Negative) H 11/10/18 17:35 Ur Leukocyte Esterase Large (Negative) H 11/10/18 17:35 Urine Microscopic WBC TNTC per hpf (0-3) H 11/10/18 17:35 Ur Squamous Epith Cells Moderate per lpf (None-Few) H 11/10/18 17:35 Urine Yeast Few per hpf (None Seen) H 11/10/18 17:35 Ur Culture Indicated? YES (NO) A 11/10/18 17:35 General appearance: Present: disheveled, no acute distress - Respiratory Respiratory exam: Present: CTAB - Cardiovascular Cardiovascular exam: Present: +S1, +S2 - GI/Abdominal GI/Abdominal exam: Present: normal bowel sounds, soft - Additional comments: Incontinent - attends in place - Extremities Exam Additional comments: Bruising to RLE noted from previous fall - Neurological Exam Neurological exam: Present: alert Additional comments: Will not verbalize or follow commands for me this am, but pleasant and smiling. Moves all extremities - Skin Additional comments: Multiple old bruises to left side of face, legs from previous fall at [facility]. Palliative Quality Palliative Quality: Screen for Code Status: Yes, Screen for Goals of Care: Yes, Screen for Pain: NA (uncooperative), If Pain Regimen Started, Initiate Bowel Regimen: NA, Screen for Nausea/Vomitting: NA Code Status: 11/10/18 16:47 Resuscitation Status: Active [RES] Routine Comment: Resuscitation Status: DNR-Comfort Care - Labs CBC & Chem 7: 11/10/18 17:18 11/10/18 17:18 Labs: Laboratory Results - last 24 hr 11/10/18 11/10/18 11/10/18 17:18 17:18 17:35 WBC 7.8 RBC 4.37 Hgb 13.0 Hct 42.1 MCV 96.3 MCH 29.7 MCHC 30.9 L RDW 13.2 Plt Count 112 L MPV 11.8 Immature Gran % 0.4 Seg Neutrophils % 54.4 Lymphocytes % 33.0 Monocytes % 9.5 Eosinophils % 1.9 Basophils % 0.8 Neutrophils # 4.2 Lymphocytes # 2.6 Monocytes # 0.7 Eosinophils # 0.2 Basophils # 0.1 Sodium 143 Potassium 3.9 Chloride 108 H Carbon Dioxide 24 BUN 21 Creatinine 1.15 Est GFR ( Amer) 55 L Est GFR (Non-Af Amer) 45 L BUN/Creatinine Ratio 18 Glucose 105 Calculated Osmolality 299 Calcium 9.5 Total Bilirubin 0.3 Direct Bilirubin 0.0 Indirect Bilirubin 0.3 AST 15 ALT 9 Alkaline Phosphatase 72 Serum Total Protein 7.0 Albumin 4.2 Globulin 2.8 Albumin/Globulin Ratio 1.5 Urine Color Yellow Urine Clarity Cloudy A Urine pH 5.5 Ur Specific [place] 1.028 H Urine Protein Trace Urine Glucose (UA) Normal Urine Ketones Trace H Urine Blood Moderate H Urine Nitrite Negative Urine Bilirubin Small H Urine Urobilinogen Normal Ur Leukocyte Esterase Large H Urine Microscopic RBC 0-3 Urine Microscopic WBC TNTC H Ur Squamous Epith Cells Moderate H Urine Bacteria Few Hyaline Casts Few Urine Mucus Few Urine Yeast Few H Ur Culture Indicated? YES A Consult Discharge Plan - Plan Referrals: NONE,PCP [Primary Care Provider] -
[2018-11-11] MEDS: Gabapentin 100 MG CAPSULE PO SCH ×3 (10:56→21:19)
[2018-11-11] MEDS: amLODIPine 5 MG TABLET PO SCH (10:56)
[2018-11-11] MEDS: risperiDONE 0.25 MG TABLET PO SCH ×3 (10:56→21:19)
[2018-11-11] MEDS: Divalproex Sodium 125 MG CAPSULE PO SCH ×3 (11:00→21:19)
[2018-11-11] MEDS: risperiDONE 1 MG TABLET PO SCH (11:00)
[2018-11-11] MEDS: CefTRIAXone 1,000 MG VIAL IM SCH (13:43)
[2018-11-11] MEDS ORDERED: CefTRIAXone 1,000 MG VIAL IM SCH (17:00)
[2018-11-11] MEDS: Mirtazapine 15 MG TABLET PO SCH (21:19)
[2018-11-12] MEDS: risperiDONE 0.25 MG TABLET PO SCH ×3 (08:54→20:25)
[2018-11-12] MEDS: amLODIPine 5 MG TABLET PO SCH (08:54)
[2018-11-12] MEDS: Gabapentin 100 MG CAPSULE PO SCH ×3 (08:55→20:25)
[2018-11-12] MEDS: CefTRIAXone 1,000 MG VIAL IM SCH (08:56)
--- NOTE | 2018-11-12 10:16 | Palliative Progress Note ---
Date of Encounter: 11/12/18 Time of Encounter: 09:00 - Assessment and plan (1) Agitation Current Visit: Yes Status: Acute Assessment and plan: Much improved from admission. Has Haloperidol PRN - has only utilized once yesterday afternoon. (2) UTI (urinary tract infection) Current Visit: No Status: Acute Assessment and plan: Transition Ceftriaxone to Ceftin tomorrow am. Qualifiers: Urinary tract infection type: site unspecified Hematuria presence: without hematuria Qualified Code(s): N39.0 - Urinary tract infection, site not specified (3) Hospice care Current Visit: Yes Status: Acute Assessment and plan: D/W Joelle Cantu [facility] SW. Updated on clinical condition and that pt can be discharged tomorrow back to [place]. (4) Altered mental status Current Visit: No Status: Acute Qualifiers: Altered mental status type: delirium Qualified Code(s): R41.0 - Disorientation, unspecified (5) Alzheimer's dementia with behavioral disturbance Current Visit: No Status: Chronic Qualifiers: Alzheimer's disease onset: late-onset Qualified Code(s): G30.1 - Alzheimer's disease with late onset (6) Palliative care encounter Current Visit: Yes Status: Acute - Time Spent With Patient Total time spent is greater than 50% in coordination of care (as documented) at patient's floor/unit and/or counseling patient: - Subjective Interval history: Patient sleeping on arrival - Bishnu at bedside. Awake - not agitated. ed educational aide in and patient did let her change her depends. Urine culture came back negative, however, her agitation is much better. D/W Dr. Coles - will continue to treat UTI. D/W Ori Farmer pharamacist - patient can be transitioned to Ceftin. - Constitutional Vitals: Abnormal lab results MCHC 30.9 g/dL (31.6-35.5) L 11/10/18 17:18 Plt Count 112 K/mcL (140-400) L 11/10/18 17:18 Chloride 108 mEq/L (98-107) H 11/10/18 17:18 Est GFR ( Amer) 55 (> 60) L 11/10/18 17:18 Est GFR (Non-Af Amer) 45 (> 60) L 11/10/18 17:18 Urine Clarity Cloudy (Clear) A 11/10/18 17:35 Ur Specific [place] 1.028 (1.010-1.025) H 11/10/18 17:35 Urine Ketones Trace mg/dL (Negative) H 11/10/18 17:35 Urine Blood Moderate (Negative) H 11/10/18 17:35 Urine Bilirubin Small (Negative) H 11/10/18 17:35 Ur Leukocyte Esterase Large (Negative) H 11/10/18 17:35 Urine Microscopic WBC TNTC per hpf (0-3) H 11/10/18 17:35 Ur Squamous Epith Cells Moderate per lpf (None-Few) H 11/10/18 17:35 Urine Yeast Few per hpf (None Seen) H 11/10/18 17:35 Ur Culture Indicated? YES (NO) A 11/10/18 17:35 General appearance: Present: no acute distress - Respiratory Respiratory exam: Present: decreased breath sounds, CTAB - Cardiovascular Cardiovascular exam: Present: +S1, +S2 - GI/Abdominal GI/Abdominal exam: Present: normal bowel sounds, soft - Extremities Exam Extremities exam: Present: normal capillary refill, normal inspection - Neurological Exam Neurological exam: Present: alert, altered - Skin Skin exam: Present: dry, pallor, warm Palliative Quality Palliative Quality: Screen for Code Status: Yes, Screen for Goals of Care: Yes, Screen for Pain: NA (uncooperative), If Pain Regimen Started, Initiate Bowel Regimen: NA, Screen for Nausea/Vomitting: NA Code Status: 11/10/18 16:47 Resuscitation Status: Active [RES] Routine Comment: Resuscitation Status: DNR-Comfort Care - Labs CBC & Chem 7: 11/10/18 17:18 11/10/18 17:18 Consult Discharge Plan - Plan Referrals: NONE,PCP [Primary Care Provider] -
[2018-11-12] MEDS ORDERED: CefTRIAXone 1,000 MG VIAL IM SCH (12:00)
[2018-11-12] MEDS: Divalproex Sodium 125 MG CAPSULE PO SCH ×2 (15:02→22:21)
[2018-11-12 16:41] LABS: Valproate Free <7 ug/mL (7-23)
[2018-11-12] MEDS: Mirtazapine 15 MG TABLET PO SCH (20:25)
[2018-11-13 07:23] VITALS: BP 153/87
[2018-11-13] MEDS: Cefuroxime PO 250 MG TABLET PO SCH ×2 (09:11→09:30)
[2018-11-13] MEDS: Gabapentin 100 MG CAPSULE PO SCH ×2 (09:11→09:30)
[2018-11-13] MEDS: amLODIPine 5 MG TABLET PO SCH (09:11)
[2018-11-13] MEDS: risperiDONE 0.25 MG TABLET PO SCH ×2 (09:11→09:30)
--- NOTE | 2018-11-13 09:35 | Discharge Summary ---
Orders not resulted at time of discharge: Pending orders 11/10/18 17:18 Valproate Total & Free Routine Date of Encounter: 11/13/18 Time of Encounter: 09:15 - Discharge Diagnosis (1) UTI (urinary tract infection) Priority: Primary Status: Resolved Qualifiers: Urinary tract infection type: site unspecified Hematuria presence: without hematuria Qualified Code(s): N39.0 - Urinary tract infection, site not specified (2) Agitation Priority: Secondary Status: Acute (3) Altered mental status Priority: Secondary Status: Chronic Qualifiers: Altered mental status type: delirium Qualified Code(s): R41.0 - Disorientation, unspecified (4) Alzheimer's dementia with behavioral disturbance Priority: Secondary Status: Chronic Qualifiers: Alzheimer's disease onset: late-onset Qualified Code(s): G30.1 - Alzheimer's disease with late onset - Hospital Course Hospital course: Ms. Kaplan is a 78 year old female who is resident of [facility] who was admitted as general inpatient hospice for increased agitation. She has history of Alzheimers dementia and has had behaviors that have required inpatient admission before. She was here in August and had increased agitation with UTI. Was suspected this time as well. U/A on admission was positive for WBC, and IM Rocephin was began. Culture was negative, however, patient's agitation was much improved with treatment, so she will be treated for 5 days, discharging on po Ceftin through 11/14. - Time Spent with Patient Total time spent providing and/or coordinating discharge services: Greater than 30 minutes Specific discharge activities: Presciption written, communication with hospice staff and patient's family on plan. - Discharge Medications Prescriptions: New Cefuroxime PO [Ceftin] 250 mg PO Q12HR 2 Days #3 tablet No Action Prochlorperazine Maleate [Compazine] 10 mg PO Q8HR PRN PRN Reason: Nausea Mirtazapine [Remeron] 15 mg PO 2100 Sertraline [Zoloft] 100 mg PO 0900 Acetaminophen [Extra Strength Non-Aspirin] 500 mg PO 0900,2100 Divalproex Sodium [Depakote Sprinkle] 125 mg PO 2100 Donepezil [Aricept] 10 mg PO 2100 Ibuprofen [Ibu] 400 mg PO Q6H PRN PRN Reason: Pain Polyethylene Glycol 3350 [MiraLAX] 17 gm PO DAILY PRN PRN Reason: Constipation amLODIPine [Norvasc] 5 mg PO 0900 Buspirone HCl [Buspar] 5 mg PO 0900,1399,2099 Divalproex Sodium [Depakote] 125 mg PO 1400 Gabapentin [Neurontin] 100 mg PO 0900,1399,2099 LORazepam [Ativan] 0.5 mg PO Q6H PRN PRN Reason: Anxiety LORazepam [Ativan] 2 mg IM Q6H PRN PRN Reason: Anxiety Memantine [Namenda] 5 mg PO 899,2099 risperiDONE [RisperDAL] 0.25 mg PO 1400,2099 Home Medications: Acetaminophen [Extra Strength Non-Aspirin] 500 mg PO 0900,209909/02/18 [History] Mirtazapine [Remeron] 15 mg PO 209909/02/18 [History] Prochlorperazine Maleate [Compazine] 10 mg PO Q8HR PRN 09/02/18 [History] Sertraline [Zoloft] 100 [place] PO 89909/02/18 [History] Divalproex Sodium [Depakote Sprinkle] 125 mg PO 209909/03/18 [History] Donepezil [Aricept] 10 mg PO 209909/03/18 [History] Ibuprofen [Ibu] 400 mg PO Q6H PRN 09/03/18 [History] Polyethylene Glycol 3350 [MiraLAX] 17 gm PO DAILY PRN 09/03/18 [History] Buspirone HCl [Buspar] 5 mg PO 0900,1400,209911/10/18 [History] Divalproex Sodium [Depakote] 125 mg PO 139911/10/18 [History] Gabapentin [Neurontin] 100 mg PO 0900,1400,209911/10/18 [History] LORazepam [Ativan] 0.5 mg PO Q6H PRN 11/10/18 [History] LORazepam [Ativan] 2 mg IM Q6H PRN 11/10/18 [History] Memantine [Namenda] 5 mg PO 0900,209911/10/18 [History] amLODIPine [Norvasc] 5 mg PO 0900 11/10/18 [History] risperiDONE [RisperDAL] 0.25 mg PO 1400,209911/10/18 [History] Cefuroxime PO [Ceftin] 250 mg PO Q12HR 2 Days #3 tablet 11/13/18 [Rx] Allergies/Adverse Reactions: Allergy/AdvReac Type Severity Reaction Status Date / Time bee venom protein (honey bee) Allergy See Verified 11/10/18 22:40 Comments morphine Allergy Hives Verified 11/10/18 22:40 mushroom Allergy See Verified 11/10/18 22:40 Comments Penicillins [PCN] Allergy See Verified 11/10/18 22:40 Comments sulfasalazine Allergy See Verified 11/10/18 22:40 Comments phenazopyridine AdvReac Nausea Verified 11/10/18 22:40 [From Pyridium] Internal Medicine - DS: Prov Date of admission: 11/10/18 16:01 Primary care physician: PCP NONE Consults: 11/10/18 16:48 Consult to Palliative Care [CONS] Routine Comment: Consulting Provider: Palliative Care [place] Reason for Consult: GIP agitation Call Completed: No 11/10/18 18:41 Consult to Nutrition [CONS] Routine Comment: Consulting Provider: NUTRITION Reason for Dietary Consult: MST Score Discharging clinician: Giovanna Wheatley Internal Medicine - DS: Exam - Constitutional Vitals: Vital Signs Temp Pulse Resp BP Pulse Ox 11/13/18 07:17 97.9 F 54 16 153/87 93 11/12/18 20:26 97 11/12/18 19:18 97.9 F 76 17 162/82 97 Intake and Output 11/12/18 11/13/18 11/13/18 23:59 07:59 15:59 Other: Weight 85.3 kg Patient Weight 11/13/18 23:59 Weight 85.3 kg - Patient Status Disposition: Hospice - Medical Facility Condition: Fair Overall status at discharge: patient is back to baseline - Discharge Instructions Follow Up With: NONE,PCP [Primary Care Provider] - - Diet and Activity Activity: increase activity as tolerated Diet: advance to your usual diet
[2018-11-13 10:20] LABS: Valproate Total <7 ug/mL (50-125)
== END 2018-11-13 13:03 | disposition hospice, inpatient (51) ==
LOC: 2ANU 16:01
PROVIDERS: ADMIT Internal Medicine Hospice and Palliative Medicine; ATTEND Internal Medicine Hospice and Palliative Medicine